=== PATIENT | male | born 1975 | race Caucasian/White ===

== ENCOUNTER 2016-10-12 10:36 | Emergency (ER) | payer OTHER ==
[~2016-10-12 10:36] MED LIST: FLOMAX0.4 MG PO; PERCOCET 10/3251 TA1 PO
[2016-10-12 11:10] LABS: APPEARANCE CLEAR (CLEAR); BACTERIA FEW /hpf (NONE SEEN); BILIRUBIN NEGATIVE (NEGATIVE); COLOR YELLOW (YELLOW); EPITHELIAL CELLS 0-5 /hpf (0-5); GLUCOSE NEGATIVE (NEGATIVE); KETONE NEGATIVE (NEGATIVE); LEUKOCYTE ESTERASE NEGATIVE (NEGATIVE); MUCUS <1+ /lpf (NONE SEEN); NITRITE NEGATIVE (NEGATIVE); PROTEIN NEGATIVE (NEGATIVE); RED CELLS - URINE OCC /hpf (0-5); SPECIFIC GRAVITY 1.025 (1.005-1.020); UROBILINOGEN NORMAL (NORMAL); WHITE CELLS - URINE 0-5 /hpf (0-5)
[2016-10-12 12:15] LABS: BASOPHILS 0.7 % (0.0-2.0); EOSINOPHILS 2.7 % (0-7); HEMATOCRIT 48.1 % (42.0-54.0); HEMOGLOBIN 16.2 g/dL (13.5-17.5); IMMATURE GRANULOCYTES 0.3 % (0-5); LYMPHOCYTES 34.9 % (15-50); MCH 31.5 pg (26.0-34.0); MCHC 33.7 g/dL (31.0-37.0); MCV 93.4 fL (80.0-100.0); MEAN PLATELET VOLUME 9.5 fL (7.4-10.4); MONOCYTES 16.4 % (2-11); PLATELET COUNT 196 10x3/uL (130-400); RBC 5.15 10x6/uL (4.20-6.10)
[2016-10-12 12:41] LABS: ALBUMIN 4.3 g/dL (3.4-5.0); ALKALINE PHOSPHATASE 63 U/L (46-116); ALT (SGPT) 43 U/L (10-68); CALC OSMOLALITY 278 mosm/kg (275-300); CALCIUM 8.8 mg/dL (8.5-10.1); CARBON DIOXIDE 28.4 mmol/L (21.0-32.0); CHLORIDE - SERUM 102 mmol/L (98-107); CREATININE - SERUM 0.9 mg/dL (0.6-1.3); GLUCOSE 172 mg/dL (74-106); POTASSIUM - SERUM 4.8 mmol/L (3.5-5.1); PROTEIN - SERUM 7.5 g/dL (6.4-8.2); SODIUM 138 mmol/L (136-145); UREA NITROGEN 11 mg/dL (7-18); eGFR NON AFRICAN AMERICAN > 90 mL/min (90-120)
== END 2016-10-12 16:06 | disposition home or self-care (01) ==
LOC: D.ER 10:36
PROVIDERS: Emergency Medicine
DX: N20.1 Calculus of ureter (principal); F17.200 Nicotine dependence, unspecified, uncomplicated

== ENCOUNTER 2017-06-28 18:45 | Emergency (ER) | payer OTHER ==
[2017-06-28 19:43] LABS: APPEARANCE CLEAR (CLEAR); BILIRUBIN NEGATIVE (NEGATIVE); COLOR YELLOW (YELLOW); GLUCOSE NEGATIVE (NEGATIVE); KETONE NEGATIVE (NEGATIVE); NITRITE NEGATIVE (NEGATIVE); PROTEIN TRACE mg/dL (NEGATIVE); UROBILINOGEN NORMAL (NORMAL)
[2017-06-28 19:46] LABS: BACTERIA MODERATE /hpf (NONE SEEN); EPITHELIAL CELLS OCC /hpf (0-5); HYALINE CAST OCC /lpf (NONE SEEN); MUCUS >1+ /lpf (NONE SEEN)
[2017-06-28 21:42] LABS: BASOPHILS 0.2 % (0-2); EOSINOPHILS 1.1 % (0-7); HEMATOCRIT 43.1 % (42.0-54.0); IMMATURE GRANULOCYTES 0.5 % (0-5); LYMPHOCYTES 19.3 % (15-50); MCH 30.7 pg (26.0-34.0); MCHC 34.8 g/dL (31.0-37.0); MCV 88.3 fL (80.0-100.0); MEAN PLATELET VOLUME 9.2 fL (7.4-10.4); MONOCYTES 9.1 % (2-11); NEUTROPHILS 69.8 % (40-80); RBC 4.88 10x6/uL (4.20-6.10); RDW 12.6 % (11.5-14.5); WBC 9.7 10x3/uL (4.8-10.8)
[2017-06-28 21:48] LABS: PLATELET COUNT 254 10x3/uL (130-400)
[2017-06-28 21:56] LABS: ALBUMIN 4.4 g/dL (3.4-5.0); ALKALINE PHOSPHATASE 62 U/L (46-116); ALT (SGPT) 40 U/L (10-68); CALC OSMOLALITY 281 mosm/kg (275-300); CARBON DIOXIDE 31.8 mmol/L (21.0-32.0); CHLORIDE - SERUM 102 mmol/L (98-107); CREATININE - SERUM 0.9 mg/dL (0.6-1.3); GLUCOSE 153 mg/dL (74-106); POTASSIUM - SERUM 3.6 mmol/L (3.5-5.1); PROTEIN - SERUM 7.7 g/dL (6.4-8.2); SODIUM 140 mmol/L (136-145); UREA NITROGEN 13 mg/dL (7-18); eGFR NON AFRICAN AMERICAN > 90 mL/min (90-120)
== END 2017-06-28 22:35 | disposition home or self-care (01) ==
LOC: D.ER 18:45
PROVIDERS: Family Medicine
DX: N20.1 Calculus of ureter (principal)

== ENCOUNTER 2017-07-03 07:14 | Emergency (ER) | payer OTHER | END 2017-07-03 07:41 | disposition home or self-care (01) | LOC: D.ER 07:14 | DX: N20.1 Calculus of ureter (principal); N23 Unspecified renal colic; F17.200 Nicotine dependence, unspecified, uncomplicated ==

== ENCOUNTER 2017-07-07 02:26 | Emergency (ER) | payer OTHER ==
[2017-07-07 02:49] LABS: BASOPHILS 0.3 % (0-2); EOSINOPHILS 2.7 % (0-7); HEMATOCRIT 41.6 % (42.0-54.0); HEMOGLOBIN 14.4 g/dL (13.5-17.5); IMMATURE GRANULOCYTES 0.1 % (0-5); LYMPHOCYTES 28.3 % (15-50); MCH 30.8 pg (26.0-34.0); MCHC 34.6 g/dL (31.0-37.0); MCV 89.1 fL (80.0-100.0); MONOCYTES 9.1 % (2-11); NEUTROPHILS 59.5 % (40-80); RBC 4.67 10x6/uL (4.20-6.10); RDW 12.3 % (11.5-14.5); WBC 6.7 10x3/uL (4.8-10.8)
[2017-07-07 02:54] LABS: PLATELET COUNT 183 10x3/uL (130-400)
[2017-07-07 03:02] LABS: ALKALINE PHOSPHATASE 63 U/L (46-116); ALT (SGPT) 33 U/L (10-68); BILIRUBIN - TOTAL 0.43 mg/dL (0.2-1.3); CALC OSMOLALITY 281 mosm/kg (275-300); CHLORIDE - SERUM 100 mmol/L (98-107); CREATININE - SERUM 0.9 mg/dL (0.6-1.3); POTASSIUM - SERUM 3.9 mmol/L (3.5-5.1); PROTEIN - SERUM 7.5 g/dL (6.4-8.2); SODIUM 137 mmol/L (136-145); UREA NITROGEN 13 mg/dL (7-18); eGFR NON AFRICAN AMERICAN > 90 mL/min (90-120)
[2017-07-07 03:03] LABS: GLUCOSE 237 mg/dL (74-106)
[2017-07-07 03:06] LABS: APPEARANCE HAZY (CLEAR); BILIRUBIN NEGATIVE (NEGATIVE); COLOR YELLOW (YELLOW); GLUCOSE NEGATIVE (NEGATIVE); KETONE NEGATIVE (NEGATIVE); NITRITE NEGATIVE (NEGATIVE); PROTEIN NEGATIVE (NEGATIVE); SPECIFIC GRAVITY 1.025 (1.005-1.020); UROBILINOGEN NORMAL (NORMAL)
[2017-07-07 03:07] LABS: BACTERIA FEW /hpf (NONE SEEN); EPITHELIAL CELLS 0-5 /hpf (0-5)
== END 2017-07-07 04:15 | disposition home or self-care (01) ==
LOC: D.ER 02:26
PROVIDERS: Family Medicine
DX: N20.1 Calculus of ureter (principal)

== ENCOUNTER 2017-09-09 14:10 | Emergency (ER) | payer OTHER ==
[2017-09-09 14:42] LABS: BASOPHILS 0.3 % (0-2); EOSINOPHILS 2.4 % (0-7); HEMATOCRIT 37.7 % (42.0-54.0); HEMOGLOBIN 13.1 g/dL (13.5-17.5); IMMATURE GRANULOCYTES 0.5 % (0-5); LYMPHOCYTES 25.4 % (15-50); MCH 30.3 pg (26.0-34.0); MCHC 34.7 g/dL (31.0-37.0); MCV 87.3 fL (80.0-100.0); MEAN PLATELET VOLUME 9.3 fL (7.4-10.4); MONOCYTES 11.3 % (2-11); NEUTROPHILS 60.1 % (40-80); PLATELET COUNT 199 10x3/uL (130-400); RBC 4.32 10x6/uL (4.20-6.10); RDW 13.1 % (11.5-14.5); WBC 5.7 10x3/uL (4.8-10.8)
[2017-09-09 15:20] LABS: ALBUMIN 4.3 g/dL (3.4-5.0); ALKALINE PHOSPHATASE 68 U/L (46-116); ALT (SGPT) 29 U/L (10-68); BILIRUBIN - TOTAL 0.45 mg/dL (0.2-1.3); CALC OSMOLALITY 282 mosm/kg (275-300); CALCIUM 9.2 mg/dL (8.5-10.1); CARBON DIOXIDE 27.7 mmol/L (21.0-32.0); CHLORIDE - SERUM 100 mmol/L (98-107); CREATININE - SERUM 0.8 mg/dL (0.6-1.3); POTASSIUM - SERUM 4.3 mmol/L (3.5-5.1); PROTEIN - SERUM 7.6 g/dL (6.4-8.2); SODIUM 135 mmol/L (136-145); UREA NITROGEN 18 mg/dL (7-18); eGFR NON AFRICAN AMERICAN > 90 mL/min (90-120)
[2017-09-09 15:22] LABS: GLUCOSE 301 mg/dL (74-106)
[2017-09-09 17:13] LABS: APPEARANCE CLEAR (CLEAR); COLOR YELLOW (YELLOW); GLUCOSE 1000 mg/dL (NEGATIVE); NITRITE NEGATIVE (NEGATIVE); PROTEIN NEGATIVE (NEGATIVE)
[2017-09-09 17:14] LABS: BILIRUBIN NEGATIVE (NEGATIVE); KETONE NEGATIVE (NEGATIVE); UROBILINOGEN NORMAL (NORMAL)
== END 2017-09-09 16:25 | disposition home or self-care (01) ==
LOC: D.ER 14:10
PROVIDERS: Emergency Medicine
DX: N23 Unspecified renal colic (principal)

== ENCOUNTER 2017-09-17 05:29 | Emergency (ER) | payer OTHER ==
[2017-09-17 06:21] LABS: ALBUMIN 4.5 g/dL (3.4-5.0); ALKALINE PHOSPHATASE 70 U/L (46-116); ALT (SGPT) 46 U/L (10-68); BILIRUBIN - TOTAL 0.51 mg/dL (0.2-1.3); CALC OSMOLALITY 289 mosm/kg (275-300); CARBON DIOXIDE 30.7 mmol/L (21.0-32.0); CHLORIDE - SERUM 98 mmol/L (98-107); GLUCOSE 278 mg/dL (74-106); POTASSIUM - SERUM 3.8 mmol/L (3.5-5.1); SODIUM 139 mmol/L (136-145); UREA NITROGEN 18 mg/dL (7-18); eGFR NON AFRICAN AMERICAN 88 mL/min (90-120)
[2017-09-17 06:32] LABS: BASOPHILS 0.3 % (0-2); HEMATOCRIT 41.6 % (42.0-54.0); HEMOGLOBIN 14.2 g/dL (13.5-17.5); IMMATURE GRANULOCYTES 0.3 % (0-5); LYMPHOCYTES 21.2 % (15-50); MCHC 34.1 g/dL (31.0-37.0); MCV 87.8 fL (80.0-100.0); MEAN PLATELET VOLUME 9.2 fL (7.4-10.4); MONOCYTES 11.4 % (2-11); NEUTROPHILS 65.8 % (40-80); RBC 4.74 10x6/uL (4.20-6.10); RDW 13.2 % (11.5-14.5); WBC 7.8 10x3/uL (4.8-10.8)
[2017-09-17 06:44] LABS: PLATELET COUNT 281 10x3/uL (130-400)
[2017-09-17 07:16] LABS: AMORPHOUS SEDIMENT >1+ /lpf (NONE SEEN); APPEARANCE HAZY (CLEAR); BACTERIA MODERATE /hpf (NONE SEEN); BILIRUBIN NEGATIVE (NEGATIVE); CALCIUM OXALATE CRYSTALS 0-5 /hpf (NONE SEEN); COLOR DK YELLOW (YELLOW); EPITHELIAL CELLS OCC /hpf (0-5); GLUCOSE 1000 mg/dL (NEGATIVE); GRANULAR CAST RARE /lpf (NONE SEEN); KETONE MODERATE mg/dL (NEGATIVE); MUCUS <1+ /lpf (NONE SEEN); NITRITE NEGATIVE (NEGATIVE); PROTEIN NEGATIVE (NEGATIVE); SPECIFIC GRAVITY 1.025 (1.005-1.020); UROBILINOGEN NORMAL (NORMAL); WHITE CELLS - URINE OCC /hpf (0-5)
== END 2017-09-17 09:30 | disposition home or self-care (01) ==
LOC: D.ER 05:29
PROVIDERS: Emergency Medicine
DX: N23 Unspecified renal colic (principal); R30.0 Dysuria; E11.65 Type 2 diabetes mellitus with hyperglycemia; F17.200 Nicotine dependence, unspecified, uncomplicated

== ENCOUNTER 2018-03-23 05:37 | Emergency (ER) | payer OTHER ==
[~2018-03-23] VITALS: Ht 188 cm; Wt 134.1 kg
[2018-03-23 05:40] VITALS: Ht 188 cm; Wt 134.1 kg
[2018-03-23] MEDS ORDERED: GLUCOPHAGE500 MG PO (05:43)
[2018-03-23] MEDS ORDERED: METOPROLOL TART25 MG PO (05:43)
[2018-03-23 06:28] LABS: BASOPHILS 0.3 % (0-2); EOSINOPHILS 1.2 % (0-7); HEMATOCRIT 47.1 % (42.0-54.0); IMMATURE GRANULOCYTES 0.3 % (0-5); LYMPHOCYTES 22.5 % (15-50); MCH 30.4 pg (26.0-34.0); MCV 89.5 fL (80.0-100.0); MEAN PLATELET VOLUME 9.3 fL (7.4-10.4); MONOCYTES 7.3 % (2-11); NEUTROPHILS 68.4 % (40-80); PLATELET COUNT 231 10x3/uL (130-400); RBC 5.26 10x6/uL (4.20-6.10); RDW 12.6 % (11.5-14.5); WBC 11.1 10x3/uL (4.8-10.8)
[2018-03-23 06:28] LABS: APPEARANCE HAZY (CLEAR); COLOR YELLOW (YELLOW)
[2018-03-23 06:29] LABS: BILIRUBIN NEGATIVE (NEGATIVE); GLUCOSE NEGATIVE (NEGATIVE); KETONE NEGATIVE (NEGATIVE); NITRITE NEGATIVE (NEGATIVE); PROTEIN TRACE mg/dL (NEGATIVE); UROBILINOGEN NORMAL (NORMAL); WHITE CELLS - URINE 0-5 /hpf (0-5)
[2018-03-23 06:30] LABS: EPITHELIAL CELLS OCC /hpf (0-5); MUCUS <1+ /lpf (NONE SEEN); RED CELLS - URINE OCC /hpf (0-5); YEAST NONE SEEN /hpf (NONE SEEN)
[2018-03-23 06:31] LABS: BACTERIA FEW /hpf (NONE SEEN)
[2018-03-23 06:44] LABS: ALBUMIN 4.6 g/dL (3.4-5.0); ALKALINE PHOSPHATASE 83 U/L (46-116); ALT (SGPT) 33 U/L (10-68); CALC OSMOLALITY 283 mosm/kg (275-300); CALCIUM 9.6 mg/dL (8.5-10.1); CARBON DIOXIDE 29.6 mmol/L (21.0-32.0); CHLORIDE - SERUM 104 mmol/L (98-107); POTASSIUM - SERUM 4.5 mmol/L (3.5-5.1); PROTEIN - SERUM 8.5 g/dL (6.4-8.2); SODIUM 141 mmol/L (136-145); UREA NITROGEN 16 mg/dL (7-18); eGFR NON AFRICAN AMERICAN 88 mL/min (90-120)
[2018-03-23 06:45] LABS: GLUCOSE 132 mg/dL (74-106)
[2018-03-23] MEDS ORDERED: FLOMAX0.4 MG PO ×2 (08:33→08:35)
[2018-03-23] MEDS ORDERED: HYDROCODONE-APA1 TAB PO (08:34)
[2018-03-23] MEDS ORDERED: ZOFRAN ODT4 MG/UDTAB PO ×2 (08:34→08:35)
[2018-03-23 09:18] VITALS: BP 142/83
== END 2018-03-23 09:18 | disposition home or self-care (01) ==
LOC: D.ER 05:37
PROVIDERS: Emergency Medicine
DX: R10.32 Left lower quadrant pain (principal); F17.200 Nicotine dependence, unspecified, uncomplicated

== ENCOUNTER 2018-04-09 12:26 | Emergency (ER) | payer OTHER ==
[~2018-04-09] VITALS: Ht 188 cm; Wt 138.6 kg
[~2018-04-09 12:26] MED LIST changes: +GLUCOPHAGE500 MG PO; +HYDROCODONE-APA1 TAB PO; +METOPROLOL TART25 MG PO; +ZOFRAN ODT4 MG/UDTAB PO
[2018-04-09 12:43] VITALS: Ht 188 cm; Wt 138.6 kg
[2018-04-09 14:32] LABS: APPEARANCE CLOUDY (CLEAR); BILIRUBIN NEGATIVE (NEGATIVE); COLOR RED (YELLOW); GLUCOSE NEGATIVE (NEGATIVE); KETONE NEGATIVE (NEGATIVE); NITRITE NEGATIVE (NEGATIVE); PROTEIN 3+ mg/dL (NEGATIVE); UROBILINOGEN NORMAL (NORMAL)
[2018-04-09 14:34] LABS: BACTERIA MODERATE /hpf (NONE SEEN); EPITHELIAL CELLS 0-5 /hpf (0-5); MUCUS <1+ /lpf (NONE SEEN); RED CELLS - URINE >50 /hpf (0-5)
[2018-04-09] MEDS ORDERED: TORADOL10 MG PO (15:13)
[2018-04-09] MEDS ORDERED: HYDROCODONE-APA1 TAB PO (15:13)
[2018-04-09 15:42] VITALS: BP 134/85
== END 2018-04-09 15:48 | disposition home or self-care (01) ==
LOC: D.ER 12:26
PROVIDERS: Emergency Medicine
DX: N20.0 Calculus of kidney (principal); N39.0 Urinary tract infection, site not specified; E11.9 Type 2 diabetes mellitus without complications; I10 Essential (primary) hypertension; F17.200 Nicotine dependence, unspecified, uncomplicated

== ENCOUNTER 2018-04-14 16:21 | Emergency (ER) | payer OTHER ==
[~2018-04-14] VITALS: Ht 188 cm; Wt 140.9 kg
[~2018-04-14 16:21] MED LIST changes: +TORADOL10 MG PO
[2018-04-14 16:30] VITALS: Ht 188 cm; Wt 140.9 kg
[2018-04-14 18:02] LABS: BASOPHILS 0.3 % (0-2); EOSINOPHILS 1.1 % (0-7); HEMATOCRIT 43.6 % (42.0-54.0); IMMATURE GRANULOCYTES 0.3 % (0-5); LYMPHOCYTES 21.1 % (15-50); MCH 30.3 pg (26.0-34.0); MCHC 34.4 g/dL (31.0-37.0); MCV 88.1 fL (80.0-100.0); NEUTROPHILS 64.2 % (40-80); RBC 4.95 10x6/uL (4.20-6.10); WBC 7.3 10x3/uL (4.8-10.8)
[2018-04-14 18:14] LABS: APPEARANCE HAZY (CLEAR); BILIRUBIN NEGATIVE (NEGATIVE); COLOR DK YELLOW (YELLOW); GLUCOSE NEGATIVE (NEGATIVE); KETONE NEGATIVE (NEGATIVE); NITRITE NEGATIVE (NEGATIVE); PROTEIN 1+ mg/dL (NEGATIVE); UROBILINOGEN NORMAL (NORMAL)
[2018-04-14 18:16] LABS: BACTERIA MODERATE /hpf (NONE SEEN); RED CELLS - URINE >50 /hpf (0-5); WHITE CELLS - URINE 0-5 /hpf (0-5)
[2018-04-14 18:20] LABS: PLATELET COUNT 172 10x3/uL (130-400)
[2018-04-14 18:21] LABS: ALBUMIN 4.4 g/dL (3.4-5.0); ALKALINE PHOSPHATASE 83 U/L (46-116); ALT (SGPT) 45 U/L (10-68); BILIRUBIN - TOTAL 0.43 mg/dL (0.2-1.3); CALC OSMOLALITY 283 mosm/kg (275-300); CALCIUM 9.4 mg/dL (8.5-10.1); CARBON DIOXIDE 29.6 mmol/L (21.0-32.0); CHLORIDE - SERUM 102 mmol/L (98-107); CREATININE - SERUM 0.9 mg/dL (0.6-1.3); GLUCOSE 177 mg/dL (74-106); POTASSIUM - SERUM 4.1 mmol/L (3.5-5.1); PROTEIN - SERUM 8.4 g/dL (6.4-8.2); SODIUM 140 mmol/L (136-145); UREA NITROGEN 15 mg/dL (7-18); eGFR NON AFRICAN AMERICAN > 90 mL/min (90-120)
[2018-04-14] MEDS ORDERED: TORADOL10 MG PO (21:28)
[2018-04-14 21:44] VITALS: BP 143/103
== END 2018-04-14 21:45 | disposition home or self-care (01) ==
LOC: D.ER 16:21
PROVIDERS: Emergency Medicine
DX: G89.18 Other acute postprocedural pain (principal); R31.9 Hematuria, unspecified; E11.9 Type 2 diabetes mellitus without complications; K21.9 Gastro-esophageal reflux disease without esophagitis; F17.200 Nicotine dependence, unspecified, uncomplicated

== ENCOUNTER 2018-04-18 17:22 | Emergency (ER) | payer OTHER ==
[~2018-04-18] VITALS: Ht 188 cm; Wt 140.9 kg
[2018-04-18 17:52] VITALS: Ht 188 cm; Wt 140.9 kg
[2018-04-18 19:01] LABS: APPEARANCE HAZY (CLEAR); BILIRUBIN NEGATIVE (NEGATIVE); COLOR BROWN (YELLOW); GLUCOSE NEGATIVE (NEGATIVE); KETONE NEGATIVE (NEGATIVE); NITRITE NEGATIVE (NEGATIVE); PROTEIN 1+ mg/dL (NEGATIVE); UROBILINOGEN NORMAL (NORMAL)
[2018-04-18 19:03] LABS: BACTERIA MODERATE /hpf (NONE SEEN); RED CELLS - URINE >50 /hpf (0-5); WHITE CELLS - URINE 0-5 /hpf (0-5)
[2018-04-18 19:06] LABS: BASOPHILS 0.4 % (0-2); EOSINOPHILS 1.6 % (0-7); HEMOGLOBIN 14.2 g/dL (13.5-17.5); IMMATURE GRANULOCYTES 0.4 % (0-5); LYMPHOCYTES 22.2 % (15-50); MCHC 33.8 g/dL (31.0-37.0); MCV 88.6 fL (80.0-100.0); MEAN PLATELET VOLUME 9.1 fL (7.4-10.4); MONOCYTES 9.1 % (2-11); NEUTROPHILS 66.3 % (40-80); RBC 4.74 10x6/uL (4.20-6.10); RDW 12.8 % (11.5-14.5); WBC 6.8 10x3/uL (4.8-10.8)
[2018-04-18 19:07] LABS: PLATELET COUNT 214 10x3/uL (130-400)
[2018-04-18 19:29] LABS: ALKALINE PHOSPHATASE 75 U/L (46-116); ALT (SGPT) 47 U/L (10-68); BILIRUBIN - TOTAL 0.36 mg/dL (0.2-1.3); CALC OSMOLALITY 279 mosm/kg (275-300); CALCIUM 8.7 mg/dL (8.5-10.1); CHLORIDE - SERUM 104 mmol/L (98-107); CREATININE - SERUM 0.8 mg/dL (0.6-1.3); GLUCOSE 149 mg/dL (74-106); POTASSIUM - SERUM 4.3 mmol/L (3.5-5.1); PROTEIN - SERUM 7.4 g/dL (6.4-8.2); SODIUM 139 mmol/L (136-145); UREA NITROGEN 10 mg/dL (7-18); eGFR NON AFRICAN AMERICAN > 90 mL/min (90-120)
[2018-04-18] MEDS ORDERED: CIPRO500 MG PO (19:38)
[2018-04-18] MEDS ORDERED: HYDROCODON-ACE1 EAC7 PO (19:38)
[2018-04-18 19:55] VITALS: BP 142/93
== END 2018-04-18 19:56 | disposition home or self-care (01) ==
LOC: D.ER 17:22
PROVIDERS: Family Medicine
DX: N39.0 Urinary tract infection, site not specified (principal); R10.9 Unspecified abdominal pain

== ENCOUNTER 2018-04-23 09:14 | Emergency (ER) | payer OTHER ==
[~2018-04-23] VITALS: Ht 188 cm; Wt 140.9 kg
[~2018-04-23 09:14] MED LIST changes: +CIPRO500 MG PO; +HYDROCODON-ACE1 EAC7 PO
[2018-04-23 09:37] VITALS: Ht 188 cm; Wt 140.9 kg
[2018-04-23 10:23] LABS: ALBUMIN 3.9 g/dL (3.4-5.0); ALKALINE PHOSPHATASE 88 U/L (46-116); ALT (SGPT) 38 U/L (10-68); AMYLASE - SERUM 43 U/L (25-115); BILIRUBIN - TOTAL 0.31 mg/dL (0.2-1.3); CALC OSMOLALITY 279 mosm/kg (275-300); CALCIUM 8.8 mg/dL (8.5-10.1); CARBON DIOXIDE 30.2 mmol/L (21.0-32.0); CHLORIDE - SERUM 102 mmol/L (98-107); GLUCOSE 167 mg/dL (74-106); LIPASE 135 U/L (73-393); POTASSIUM - SERUM 3.9 mmol/L (3.5-5.1); PROTEIN - SERUM 7.5 g/dL (6.4-8.2); SODIUM 138 mmol/L (136-145); UREA NITROGEN 13 mg/dL (7-18); eGFR NON AFRICAN AMERICAN 88 mL/min (90-120)
[2018-04-23 10:24] LABS: BASOPHILS 0.2 % (0-2); EOSINOPHILS 2.2 % (0-7); HEMATOCRIT 40.7 % (42.0-54.0); HEMOGLOBIN 13.8 g/dL (13.5-17.5); IMMATURE GRANULOCYTES 0.3 % (0-5); LYMPHOCYTES 23.1 % (15-50); MCH 29.8 pg (26.0-34.0); MCHC 33.9 g/dL (31.0-37.0); MCV 87.9 fL (80.0-100.0); MEAN PLATELET VOLUME 9.1 fL (7.4-10.4); MONOCYTES 9.5 % (2-11); NEUTROPHILS 64.7 % (40-80); PLATELET COUNT 249 10x3/uL (130-400); RBC 4.63 10x6/uL (4.20-6.10); RDW 12.8 % (11.5-14.5); WBC 9.8 10x3/uL (4.8-10.8)
[2018-04-23 12:25] LABS: APPEARANCE CLOUDY (CLEAR); BILIRUBIN NEGATIVE (NEGATIVE); COLOR AMBER (YELLOW); GLUCOSE NEGATIVE (NEGATIVE); KETONE NEGATIVE (NEGATIVE); NITRITE NEGATIVE (NEGATIVE); PROTEIN 2+ mg/dL (NEGATIVE); SPECIFIC GRAVITY 1.025 (1.005-1.020); UROBILINOGEN NORMAL (NORMAL)
[2018-04-23 12:27] LABS: BACTERIA FEW /hpf (NONE SEEN); EPITHELIAL CELLS RARE /hpf (0-5); MUCUS <1+ /lpf (NONE SEEN); RED CELLS - URINE >50 /hpf (0-5); URIC ACID CRYSTALS 0-5 /hpf (NONE SEEN)
[2018-04-23 13:24] VITALS: BP 138/72
== END 2018-04-23 14:07 ==
LOC: D.ER 09:14
PROVIDERS: Family Medicine
DX: N20.0 Calculus of kidney (principal); Z87.448 Personal history of other diseases of urinary system; E11.9 Type 2 diabetes mellitus without complications; I10 Essential (primary) hypertension; K21.9 Gastro-esophageal reflux disease without esophagitis; F17.200 Nicotine dependence, unspecified, uncomplicated

== ENCOUNTER 2018-04-29 06:09 | Emergency (ER) | payer OTHER ==
[~2018-04-29] VITALS: Ht 188 cm; Wt 143.2 kg
[2018-04-29 06:13] VITALS: Ht 188 cm; Wt 143.2 kg
[2018-04-29] MEDS ORDERED: IBUPROFEN800 MG PO (06:17)
[2018-04-29 06:55] LABS: BASOPHILS 0.3 % (0-2); EOSINOPHILS 2.7 % (0-7); HEMATOCRIT 43.1 % (42.0-54.0); HEMOGLOBIN 15.1 g/dL (13.5-17.5); IMMATURE GRANULOCYTES 0.2 % (0-5); LYMPHOCYTES 24.6 % (15-50); MCH 30.5 pg (26.0-34.0); MCV 87.1 fL (80.0-100.0); MEAN PLATELET VOLUME 8.7 fL (7.4-10.4); MONOCYTES 12.4 % (2-11); NEUTROPHILS 59.8 % (40-80); RBC 4.95 10x6/uL (4.20-6.10); RDW 13.1 % (11.5-14.5); WBC 6.4 10x3/uL (4.8-10.8)
[2018-04-29 07:01] LABS: PLATELET COUNT 172 10x3/uL (130-400)
[2018-04-29 07:29] LABS: ANION GAP 11.1 mmol/L (8-16); BILIRUBIN - TOTAL 0.92 mg/dL (0.2-1.3); CALCIUM 8.9 mg/dL (8.5-10.1); CARBON DIOXIDE 29.9 mmol/L (21.0-32.0); CREATININE - SERUM 1.2 mg/dL (0.6-1.3); PROTEIN - SERUM 7.6 g/dL (6.4-8.2)
[2018-04-29 07:29] LABS: APPEARANCE CLOUDY (CLEAR); BILIRUBIN NEGATIVE (NEGATIVE); COLOR RED (YELLOW); GLUCOSE 100 mg/dL (NEGATIVE); KETONE NEGATIVE (NEGATIVE); NITRITE NEGATIVE (NEGATIVE); PROTEIN 3+ mg/dL (NEGATIVE); SPECIFIC GRAVITY 1.015 (1.005-1.020); UROBILINOGEN NORMAL (NORMAL)
[2018-04-29 07:30] LABS: BACTERIA FEW /hpf (NONE SEEN); EPITHELIAL CELLS 0-5 /hpf (0-5); RED CELLS - URINE >50 /hpf (0-5)
[2018-04-29 09:49] VITALS: BP 136/92
== END 2018-04-29 09:49 | disposition home or self-care (01) ==
LOC: D.ER 06:09
PROVIDERS: Family Medicine
DX: N20.1 Calculus of ureter (principal); R10.2 Pelvic and perineal pain; R31.9 Hematuria, unspecified; R30.0 Dysuria; E11.9 Type 2 diabetes mellitus without complications; I10 Essential (primary) hypertension; F17.200 Nicotine dependence, unspecified, uncomplicated

== ENCOUNTER 2018-06-19 05:18 | Emergency (ER) | payer OTHER ==
[~2018-06-19] VITALS: Ht 188 cm; Wt 127.3 kg
[~2018-06-19 05:18] MED LIST changes: +IBUPROFEN800 MG PO
[2018-06-19 05:23] VITALS: Ht 188 cm; Wt 127.3 kg
[2018-06-19 05:40] LABS: BASOPHILS 0.2 % (0-2); EOSINOPHILS 1.4 % (0-7); HEMATOCRIT 43.3 % (42.0-54.0); HEMOGLOBIN 14.9 g/dL (13.5-17.5); IMMATURE GRANULOCYTES 0.4 % (0-5); MCH 30.8 pg (26.0-34.0); MCHC 34.4 g/dL (31.0-37.0); MCV 89.6 fL (80.0-100.0); MEAN PLATELET VOLUME 9.5 fL (7.4-10.4); MONOCYTES 10.3 % (2-11); NEUTROPHILS 58.7 % (40-80); PLATELET COUNT 186 10x3/uL (130-400); RBC 4.83 10x6/uL (4.20-6.10); RDW 14.7 % (11.5-14.5); WBC 9.2 10x3/uL (4.8-10.8)
[2018-06-19 05:54] LABS: APPEARANCE HAZY (CLEAR); BACTERIA NONE SEEN /hpf (NONE SEEN); BILIRUBIN NEGATIVE (NEGATIVE); COLOR DK YELLOW (YELLOW); EPITHELIAL CELLS RARE /hpf (0-5); GLUCOSE NEGATIVE (NEGATIVE); KETONE NEGATIVE (NEGATIVE); NITRITE NEGATIVE (NEGATIVE); PROTEIN 1+ mg/dL (NEGATIVE); RED CELLS - URINE 25-50 /hpf (0-5); UROBILINOGEN NORMAL (NORMAL); WHITE CELLS - URINE RARE /hpf (0-5)
[2018-06-19 05:56] LABS: ANION GAP 17.5 mmol/L (8-16); BILIRUBIN - TOTAL 0.5 mg/dL (0.2-1.3); CALCIUM 8.6 mg/dL (8.5-10.1); CREATININE - SERUM 1.2 mg/dL (0.6-1.3); POTASSIUM - SERUM 3.5 mmol/L (3.5-5.1); PROTEIN - SERUM 7.7 g/dL (6.4-8.2)
[2018-06-19] MEDS ORDERED: TYLENOL W/CODEI1 TAB PO (06:25)
[2018-06-19] MEDS ORDERED: FLOMAX0.4 MG PO (06:25)
[2018-06-19 07:30] VITALS: BP 122/76
== END 2018-06-19 07:30 | disposition home or self-care (01) ==
LOC: D.ER 05:18
PROVIDERS: Family Medicine
DX: N20.1 Calculus of ureter (principal); E11.9 Type 2 diabetes mellitus without complications; I10 Essential (primary) hypertension

== ENCOUNTER 2018-06-28 21:59 | Emergency (ER) | payer SELFPAY ==
[~2018-06-28] VITALS: Ht 188 cm; Wt 127.3 kg
[~2018-06-28 21:59] MED LIST changes: +TYLENOL W/CODEI1 TAB PO
[2018-06-28 22:21] VITALS: Ht 188 cm; Wt 127.3 kg
[2018-06-28 22:50] LABS: BASOPHILS 0.2 % (0-2); EOSINOPHILS 1.1 % (0-7); HEMATOCRIT 45.2 % (42.0-54.0); HEMOGLOBIN 15.4 g/dL (13.5-17.5); IMMATURE GRANULOCYTES 0.6 % (0-5); MCH 30.8 pg (26.0-34.0); MCHC 34.1 g/dL (31.0-37.0); MCV 90.4 fL (80.0-100.0); MONOCYTES 15.7 % (2-11); NEUTROPHILS 76.4 % (40-80); PLATELET COUNT 163 10x3/uL (130-400); RDW 14.1 % (11.5-14.5); WBC 4.7 10x3/uL (4.8-10.8)
[2018-06-28 22:54] LABS: APPEARANCE CLEAR (CLEAR); BILIRUBIN NEGATIVE (NEGATIVE); COLOR YELLOW (YELLOW); GLUCOSE NEGATIVE (NEGATIVE); KETONE NEGATIVE (NEGATIVE); NITRITE NEGATIVE (NEGATIVE); PROTEIN TRACE mg/dL (NEGATIVE); UROBILINOGEN NORMAL (NORMAL)
[2018-06-28 23:05] LABS: ALBUMIN 4.2 g/dL (3.4-5.0); ALKALINE PHOSPHATASE 72 U/L (46-116); ALT (SGPT) 57 U/L (10-68); BILIRUBIN - TOTAL 0.58 mg/dL (0.2-1.3); CALC OSMOLALITY 282 mosm/kg (275-300); CALCIUM 9.1 mg/dL (8.5-10.1); CARBON DIOXIDE 29.9 mmol/L (21.0-32.0); CHLORIDE - SERUM 101 mmol/L (98-107); CREATININE - SERUM 0.9 mg/dL (0.6-1.3); GLUCOSE 184 mg/dL (74-106); POTASSIUM - SERUM 4.2 mmol/L (3.5-5.1); PROTEIN - SERUM 7.9 g/dL (6.4-8.2); SODIUM 139 mmol/L (136-145); UREA NITROGEN 12 mg/dL (7-18); eGFR NON AFRICAN AMERICAN > 90 mL/min (90-120)
[2018-06-28] MEDS ORDERED: ULTRAM50 MG PO (23:51)
[2018-06-28] MEDS ORDERED: STERAPRED DS 1210 MG PO (23:51)
[2018-06-29 00:03] VITALS: BP 144/101
== END 2018-06-29 00:05 | disposition home or self-care (01) ==
LOC: D.ER 21:59
PROVIDERS: Family Medicine
DX: M54.16 Radiculopathy, lumbar region (principal); F17.200 Nicotine dependence, unspecified, uncomplicated; E11.9 Type 2 diabetes mellitus without complications; I10 Essential (primary) hypertension

== ENCOUNTER 2019-01-08 13:36 | Emergency (ER) | payer MEDICAID ==
[~2019-01-08 13:36] MED LIST changes: +STERAPRED DS 1210 MG PO; +ULTRAM50 MG PO
[2019-01-08] MEDS ORDERED: VOLTAREN75 MG PO (16:03)
[2019-01-08] MEDS ORDERED: BACLOFEN20 M1 PO (16:03)
== END 2019-01-08 16:30 | disposition home or self-care (01) ==
LOC: D.ER 13:36
DX: S20.212A Contusion of left front wall of thorax, initial encounter (principal); W18.09XA Striking against other object with subsequent fall, initial encounter; Y93.89 Activity, other specified; Y92.019 Unspecified place in single-family (private) house as the place of occurrence of the external cause

== ENCOUNTER 2019-01-28 16:08 | Emergency (ER) | payer MEDICAID ==
[~2019-01-28] VITALS: Ht 188 cm; Wt 128.6 kg
[~2019-01-28 16:08] MED LIST changes: +BACLOFEN20 M1 PO; +VOLTAREN75 MG PO
[2019-01-28 16:38] VITALS: Ht 188 cm; Wt 128.6 kg
[2019-01-28] MEDS ORDERED: LEXAPRO10 MG PO (16:40)
[2019-01-28] MEDS ORDERED: AMBIEN5 MG PO (16:40)
[2019-01-28] MEDS ORDERED: ZOFRAN8 MG PO (17:52)
[2019-01-28] MEDS ORDERED: TORADOL10 MG PO (17:52)
[2019-01-28 18:07] LABS: APPEARANCE CLEAR (CLEAR); BILIRUBIN NEGATIVE (NEGATIVE); COLOR YELLOW (YELLOW); GLUCOSE NEGATIVE (NEGATIVE); KETONE NEGATIVE (NEGATIVE); NITRITE NEGATIVE (NEGATIVE); PROTEIN NEGATIVE (NEGATIVE); UROBILINOGEN NORMAL (NORMAL)
[2019-01-28 19:09] VITALS: BP 130/80
== END 2019-01-28 18:52 | disposition home or self-care (01) ==
LOC: D.ER 16:08
PROVIDERS: Family Medicine
DX: R10.9 Unspecified abdominal pain (principal); Z87.442 Personal history of urinary calculi

== ENCOUNTER 2020-02-12 20:15 | Emergency (ER) | payer OTHER ==
[~2020-02-12] VITALS: Ht 188 cm; Wt 130.0 kg
[~2020-02-12 20:15] MED LIST changes: +AMBIEN5 MG PO; +LEXAPRO10 MG PO; +ZOFRAN8 MG PO
[2020-02-12 20:19] VITALS: Ht 188 cm; Wt 130.0 kg
[2020-02-12 21:32] LABS: BILIRUBIN NEGATIVE (NEGATIVE); GLUCOSE NEGATIVE (NEGATIVE); KETONE NEGATIVE (NEGATIVE); NITRITE NEGATIVE (NEGATIVE); SPECIFIC GRAVITY 1.015 (1.005-1.020); UROBILINOGEN NORMAL (NORMAL)
[2020-02-12] MEDS ORDERED: HYDROCODON-ACE1 EA10 PO (21:44)
[2020-02-12] MEDS ORDERED: FLOMAX0.4 MG PO (21:44)
[2020-02-12 22:32] VITALS: BP 138/85
== END 2020-02-12 22:15 | disposition home or self-care (01) ==
LOC: D.ER 20:15
PROVIDERS: Family Medicine
DX: N13.2 Hydronephrosis with renal and ureteral calculous obstruction (principal); Z87.442 Personal history of urinary calculi; R10.9 Unspecified abdominal pain; E11.9 Type 2 diabetes mellitus without complications; I10 Essential (primary) hypertension; Z72.0 Tobacco use; Z79.84 Long term (current) use of oral hypoglycemic drugs

== ENCOUNTER 2020-02-29 17:51 | Emergency (ER) | payer OTHER ==
[~2020-02-29] VITALS: Ht 188 cm; Wt 127.3 kg
[~2020-02-29 17:51] MED LIST changes: +HYDROCODON-ACE1 EA10 PO
[2020-02-29 18:00] VITALS: Ht 188 cm; Wt 127.3 kg
[2020-02-29 19:04] LABS: BILIRUBIN NEGATIVE (NEGATIVE); GLUCOSE NEGATIVE (NEGATIVE); KETONE NEGATIVE (NEGATIVE); NITRITE NEGATIVE (NEGATIVE); UROBILINOGEN NORMAL (NORMAL)
[2020-02-29 19:05] LABS: BACTERIA FEW /hpf (NEGATIVE); RED CELLS - URINE 0-5 /hpf (0-5)
[2020-02-29 19:46] LABS: BASOPHILS 0.5 % (0-2); EOSINOPHILS 2.7 % (0-7); HEMATOCRIT 36.5 % (42.0-54.0); HEMOGLOBIN 12.2 g/dL (13.5-17.5); IMMATURE GRANULOCYTES 0.6 % (0-5); LYMPHOCYTES 25.4 % (15-50); MCH 30.8 pg (26.0-34.0); MCHC 33.4 g/dL (31.0-37.0); MCV 92.2 fL (80.0-100.0); MEAN PLATELET VOLUME 9.2 fL (7.4-10.4); MONOCYTES 11.7 % (2-11); NEUTROPHILS 59.1 % (40-80); RBC 3.96 10x6/uL (4.20-6.10); RDW 13.1 % (11.5-14.5); WBC 6.3 10x3/uL (4.8-10.8)
[2020-02-29 19:53] LABS: ANION GAP 11.9 mmol/L (8-16); CARBON DIOXIDE 29.4 mmol/L (21.0-32.0); CREATININE - SERUM 1.3 mg/dL (0.6-1.3); POTASSIUM - SERUM 4.3 mmol/L (3.5-5.1)
[2020-02-29 19:59] LABS: ALBUMIN 3.6 g/dL (3.4-5.0); BILIRUBIN - TOTAL 0.26 mg/dL (0.2-1.3); PROTEIN - SERUM 6.9 g/dL (6.4-8.2)
[2020-02-29 20:14] LABS: PLATELET COUNT 201 10x3/uL (130-400)
[2020-02-29] MEDS ORDERED: HYDROCODON-ACE1 EA10 PO (20:24)
[2020-02-29 20:37] VITALS: BP 132/85
== END 2020-02-29 20:38 | disposition home or self-care (01) ==
LOC: D.ER 17:51
PROVIDERS: Family Medicine
DX: N20.0 Calculus of kidney (principal); E11.9 Type 2 diabetes mellitus without complications; I10 Essential (primary) hypertension; Z72.0 Tobacco use; Z79.84 Long term (current) use of oral hypoglycemic drugs

== ENCOUNTER 2020-03-26 09:51 | Emergency (ER) | payer OTHER ==
[~2020-03-26] VITALS: Ht 188 cm; Wt 129.1 kg
[2020-03-26 10:05] VITALS: Ht 188 cm; Wt 129.1 kg
[2020-03-26 10:33] LABS: BASOPHILS 0.2 % (0-2); HEMATOCRIT 39.7 % (42.0-54.0); HEMOGLOBIN 13.3 g/dL (13.5-17.5); IMMATURE GRANULOCYTES 0.6 % (0-5); LYMPHOCYTES 21.5 % (15-50); MCH 30.6 pg (26.0-34.0); MCHC 33.5 g/dL (31.0-37.0); MCV 91.5 fL (80.0-100.0); MONOCYTES 6.4 % (2-11); NEUTROPHILS 70.3 % (40-80); PLATELET COUNT 220 10x3/uL (130-400); RBC 4.34 10x6/uL (4.20-6.10); RDW 13.1 % (11.5-14.5); WBC 8.7 10x3/uL (4.8-10.8)
[2020-03-26 10:51] LABS: ANION GAP 10.6 mmol/L (8-16); CALCIUM 9.1 mg/dL (8.5-10.1); CARBON DIOXIDE 27.7 mmol/L (21.0-32.0); CREATININE - SERUM 1.4 mg/dL (0.6-1.3); POTASSIUM - SERUM 4.3 mmol/L (3.5-5.1)
[2020-03-26 10:55] LABS: BACTERIA FEW /hpf (NEGATIVE); BILIRUBIN NEGATIVE (NEGATIVE); EPITHELIAL CELLS 0-5 /hpf (0-5); GLUCOSE 250 mg/dL (NEGATIVE); KETONE NEGATIVE (NEGATIVE); NITRITE NEGATIVE (NEGATIVE); RED CELLS - URINE >50 /hpf (0-5); SPECIFIC GRAVITY 1.025 (1.005-1.020); UROBILINOGEN NORMAL (NORMAL); WHITE CELLS - URINE OCC /hpf (NEGATIVE)
[2020-03-26 10:57] LABS: ALBUMIN 3.8 g/dL (3.4-5.0); BILIRUBIN - TOTAL 0.3 mg/dL (0.2-1.3); PROTEIN - SERUM 6.8 g/dL (6.4-8.2)
[2020-03-26] MEDS ORDERED: ONDANSETRON ODT8 MG PO (15:01)
[2020-03-26] MEDS ORDERED: HYDROCODON-ACE1 EAC2 PO (15:01)
[2020-03-26] MEDS ORDERED: FLOMAX0.4 MG PO (15:01)
[2020-03-26 15:20] VITALS: BP 139/90
== END 2020-03-26 15:20 | disposition left against medical advice (07) ==
LOC: D.ER 09:51
PROVIDERS: Family Medicine
DX: N13.2 Hydronephrosis with renal and ureteral calculous obstruction (principal); E11.9 Type 2 diabetes mellitus without complications; I10 Essential (primary) hypertension; Z72.0 Tobacco use; Z79.84 Long term (current) use of oral hypoglycemic drugs; R10.9 Unspecified abdominal pain

== ENCOUNTER 2020-06-14 20:56 | Emergency (ER) | payer OTHER ==
[~2020-06-14] VITALS: Ht 188 cm; Wt 133.2 kg
[~2020-06-14 20:56] MED LIST changes: +HYDROCODON-ACE1 EAC2 PO; +ONDANSETRON ODT8 MG PO
[2020-06-14 21:00] VITALS: Ht 188 cm; Wt 133.2 kg
[2020-06-14] MEDS ORDERED: FLOMAX0.4 MG PO (21:19)
[2020-06-14] MEDS ORDERED: HYDROCODON-ACE1 EAC7 PO (21:19)
[2020-06-14 21:33] LABS: BASOPHILS 0.2 % (0-2); EOSINOPHILS 1.5 % (0-7); HEMATOCRIT 40.6 % (42.0-54.0); HEMOGLOBIN 13.8 g/dL (13.5-17.5); IMMATURE GRANULOCYTES 0.3 % (0-5); LYMPHOCYTES 17.4 % (15-50); MCH 31.8 pg (26.0-34.0); MCV 93.5 fL (80.0-100.0); MEAN PLATELET VOLUME 9.2 fL (7.4-10.4); MONOCYTES 11.3 % (2-11); NEUTROPHILS 69.3 % (40-80); PLATELET COUNT 216 10x3/uL (130-400); RBC 4.34 10x6/uL (4.20-6.10); RDW 14.1 % (11.5-14.5); WBC 9.7 10x3/uL (4.8-10.8)
[2020-06-14 21:33] LABS: BILIRUBIN NEGATIVE (NEGATIVE); KETONE NEGATIVE (NEGATIVE); NITRITE NEGATIVE (NEGATIVE); UROBILINOGEN NORMAL mg/dL (< 2)
[2020-06-14 21:34] LABS: BACTERIA MODERATE /HPF (NONE SEEN)
[2020-06-14 21:35] LABS: YEAST RARE /hpf (NONE SEEN)
[2020-06-14 21:36] LABS: AMORPHOUS SEDIMENT >1+ /lpf (NONE SEEN)
[2020-06-14 21:40] LABS: ANION GAP 10.2 mmol/L (8-16); CALCIUM 9.1 mg/dL (8.5-10.1); CARBON DIOXIDE 27.9 mmol/L (21.0-32.0); CREATININE - SERUM 1.5 mg/dL (0.6-1.3); POTASSIUM - SERUM 4.1 mmol/L (3.5-5.1)
[2020-06-14 21:46] LABS: ALBUMIN 3.9 g/dL (3.4-5.0); BILIRUBIN - TOTAL 0.54 mg/dL (0.2-1.3); PROTEIN - SERUM 7.4 g/dL (6.4-8.2)
[2020-06-14] MEDS ORDERED: BACTRIM DS TAB1 EAC1 PO (21:49)
[2020-06-14 23:28] VITALS: BP 159/70
== END 2020-06-14 23:25 | disposition home or self-care (01) ==
LOC: D.ER 20:56
PROVIDERS: Family Medicine
DX: R10.31 Right lower quadrant pain (principal); E87.1 Hypo-osmolality and hyponatremia; N39.0 Urinary tract infection, site not specified; I10 Essential (primary) hypertension; E11.9 Type 2 diabetes mellitus without complications; Z79.84 Long term (current) use of oral hypoglycemic drugs

== ENCOUNTER 2020-06-22 03:06 | Emergency (ER) | payer OTHER ==
[~2020-06-22] VITALS: Ht 188 cm; Wt 133.2 kg
[~2020-06-22 03:06] MED LIST changes: +BACTRIM DS TAB1 EAC1 PO
[2020-06-22 03:17] VITALS: Ht 188 cm; Wt 133.2 kg
[2020-06-22 03:23] LABS: BASOPHILS 0.4 % (0-2); EOSINOPHILS 1.2 % (0-7); HEMATOCRIT 38.4 % (42.0-54.0); HEMOGLOBIN 13.1 g/dL (13.5-17.5); IMMATURE GRANULOCYTES 0.7 % (0-5); LYMPHOCYTES 23.1 % (15-50); MCH 32.3 pg (26.0-34.0); MCHC 34.1 g/dL (31.0-37.0); MCV 94.8 fL (80.0-100.0); MEAN PLATELET VOLUME 9.2 fL (7.4-10.4); MONOCYTES 10.7 % (2-11); NEUTROPHILS 63.9 % (40-80); PLATELET COUNT 190 10x3/uL (130-400); RBC 4.05 10x6/uL (4.20-6.10); RDW 14.6 % (11.5-14.5); WBC 7.6 10x3/uL (4.8-10.8)
[2020-06-22 03:32] LABS: ANION GAP 9.1 mmol/L (8-16); CALCIUM 8.8 mg/dL (8.5-10.1); CARBON DIOXIDE 30.1 mmol/L (21.0-32.0); CREATININE - SERUM 1.3 mg/dL (0.6-1.3); POTASSIUM - SERUM 4.2 mmol/L (3.5-5.1)
[2020-06-22] MEDS ORDERED: GLUCOTROL 5 MG T5 MG PO (04:05)
[2020-06-22] MEDS ORDERED: GLUCOPHAGE1000 MG PO (04:05)
[2020-06-22 04:49] LABS: NITRITE NEGATIVE (NEGATIVE)
[2020-06-22 04:50] LABS: BILIRUBIN NEGATIVE (NEGATIVE); KETONE NEGATIVE (NEGATIVE); UROBILINOGEN NORMAL mg/dL (< 2)
[2020-06-22] MEDS ORDERED: NORCO 7.5-3251 EACH GT (05:00)
[2020-06-22 05:23] VITALS: BP 152/94
== END 2020-06-22 05:22 | disposition home or self-care (01) ==
LOC: D.ER 03:06
PROVIDERS: Emergency Medicine
DX: N20.1 Calculus of ureter (principal); E11.65 Type 2 diabetes mellitus with hyperglycemia; I10 Essential (primary) hypertension; Z79.84 Long term (current) use of oral hypoglycemic drugs